=== PATIENT | female | born 2000 | race Caucasian/White ===

== ENCOUNTER 2022-01-12 01:02 | Emergency (ER) | payer MEDICAID ==
[~2022-01-12] VITALS: Ht 180.3 cm; Wt 77.3 kg
[2022-01-12 01:07] VITALS: TEMP 98.5
[2022-01-12 03:06] VITALS: BP 154/78; PULSE 76
== END 2022-01-12 03:06 | disposition home or self-care (01) ==
LOC: COL.ER 01:02
DX: R05.9 Cough, unspecified (principal)